=== PATIENT | male | born 1950 | race Two or more races ===

== ENCOUNTER → 2019-09-18 | Outpatient (CLI) | payer MEDICARE | END | disposition home or self-care (01) | LOC: CFH 09:17 | PROVIDERS: ATTEND Internal Medicine Cardiovascular Disease | DX: Z13.6 Encounter for screening for cardiovascular disorders (principal); I77.811 Abdominal aortic ectasia; I08.0 Rheumatic disorders of both mitral and aortic valves; I10 Essential (primary) hypertension; E11.9 Type 2 diabetes mellitus without complications; E78.2 Mixed hyperlipidemia; Z87.891 Personal history of nicotine dependence | CPT/HCPCS: 76706; 93306; 93356 ==

== ENCOUNTER → 2020-08-26 | Outpatient (CLI) | payer MEDICARE ==
[~2020-08-26] MED LIST: AMLO-211 PO; ATOR-2 PO; CARV-39 PO; CHLORTHALIDONE; FERR-51 PO; GLIP5TAB22 PO; HYDR-3343 PO; LEVO750T6 PO; MECL-101 PO; METF500T17 PO; TELM80TA PO
== END | disposition home or self-care (01) ==
LOC: CFH 07:44
PROVIDERS: ATTEND Nurse Practitioner Family
DX: R22.1 Localized swelling, mass and lump, neck (principal); J98.6 Disorders of diaphragm
CPT/HCPCS: 71046; 76536

== ENCOUNTER 2020-09-05 12:57 | Outpatient (CLI) | payer MEDICARE ==
[2020-09-05] MEDS ORDERED: LIDOCAINE 1%, 10ML ONE (13:09)
== END 2020-09-05 23:59 | disposition home or self-care (01) ==
LOC: RAD 12:57
PROVIDERS: ATTEND Nurse Practitioner Family
DX: R59.9 Enlarged lymph nodes, unspecified (principal); C08.9 Malignant neoplasm of major salivary gland, unspecified
CPT/HCPCS: 10005; 38505; 76942; 88305; 88333; 88334

== ENCOUNTER → 2020-09-21 | Outpatient (CLI) | payer MEDICARE ==
[~2020-09-21] MED LIST changes: +OMNIPAQUE 350 MG/ML, 100ML BOTTLE ONE
== END | disposition home or self-care (01) ==
LOC: RAD 07:30
PROVIDERS: ATTEND Otolaryngology
DX: C08.1 Malignant neoplasm of sublingual gland (principal); R22.1 Localized swelling, mass and lump, neck
CPT/HCPCS: 70491; 78815; A9552; Q9967

== ENCOUNTER 2020-10-07 10:04 | Outpatient (CLI) | payer MEDICARE ==
[~2020-10-07 10:04] MED LIST changes: -OMNIPAQUE 350 MG/ML, 100ML BOTTLE ONE
== END 2020-10-07 23:59 | disposition home or self-care (01) ==
LOC: ROC 10:04
PROVIDERS: ATTEND Radiology Radiation Oncology
DX: C07 Malignant neoplasm of parotid gland (principal); C77.0 Secondary and unspecified malignant neoplasm of lymph nodes of head, face and neck
CPT/HCPCS: 99214; G0463